=== PATIENT | male | born 1930 | race Caucasian/White ===

== ENCOUNTER → 2018-09-27 | Outpatient (CLI) | payer MEDICARE, OTHER | LOC: M SMT 11:07 | PROVIDERS: ATTEND Urology | DX: Z12.5 Encounter for screening for malignant neoplasm of prostate (principal); C61 Malignant neoplasm of prostate; Z87.440 Personal history of urinary (tract) infections | CPT/HCPCS: 36415; G0103 ==

== ENCOUNTER → 2018-10-05 | Outpatient (CLI) | payer MEDICARE, OTHER ==
--- NOTE | 2018-10-05 09:49 | REP ---
RIGHT SHOULDER, THREE VIEWS: HISTORY: Shoulder pain. There is no acute fracture or dislocation. There is minimal narrowing of the glenohumeral joint space and mild narrowing of the acromioclavicular joint space. Calcification is present lateral to the head of the humerus. This represents ligamentous or tendon calcification. IMPRESSION: Degenerative change as described above. Electronically Signed by Paul Juares MD 10/05/2018 10:02 A
[2018-10-05 13:56] LABS: BASO # 0.1 10^3/uL (0.0-0.2); BASO % 0.6 % (0.0-1.0); EOS # 0.4 10^3/uL (0.0-0.50); EOS % 4.3 % (0.0-3.0); HEMATOCRIT 46.9 % (42.0-52.0); HEMOGLOBIN 15.9 g/dl (13.5-17.5); LYMPH # 2.7 10^3/uL (1.5-4.5); LYMPH % 29.3 % (24.0-44.0); MEAN CORPUSCULAR HGB CONC 33.9 g/dl (32.0-36.5); MEAN CORPUSCULAR VOLUME 91.4 fl (80.0-96.0); MONO # 0.7 10^3/uL (0.0-0.8); MONO % 7.5 % (0.0-5.0); NEUTROPHILS # 5.2 10^3/uL (1.8-7.7); NEUTROPHILS % 57.4 % (36.0-66.0); PLATELET COUNT, AUTOMATED 249 10^3/uL (150-450); RED BLOOD COUNT 5.13 10^6/uL (4.30-6.10); WHITE BLOOD COUNT 9.1 10^3/uL (4.0-10.0)
[2018-10-05 14:29] LABS: ALBUMIN 3.9 GM/DL (3.2-5.2); ALT/SGPT 20 U/L (12-78); BILIRUBIN,TOTAL 0.7 MG/DL (0.2-1.0); BLOOD UREA NITROGEN 17 MG/DL (7-18); CALCIUM LEVEL 9.3 MG/DL (8.8-10.2); CARBON DIOXIDE LEVEL 29 MEQ/L (21-32); CHLORIDE LEVEL 103 MEQ/L (98-107); CHOLESTEROL LEVEL 160 MG/DL (<200); GLOMERULAR FILTRATION RATE > 60.0 (>35); GLUCOSE, FASTING 100 MG/DL (70-100); HDL CHOLESTEROL 50 MG/DL (>40); LDL CHOLESTEROL 75 MG/DL (<100); NON-HDL-C 110 MG/DL; POTASSIUM SERUM 4.5 MEQ/L (3.5-5.1); SODIUM LEVEL 140 MEQ/L (136-145); TOTAL PROTEIN 6.7 GM/DL (6.4-8.2); TRIGLYCERIDES LEVEL 173 MG/DL (<150)
== END ==
LOC: M SMT 09:18
PROVIDERS: ATTEND Physician Assistant Medical
DX: M75.01 Adhesive capsulitis of right shoulder (principal); I10 Essential (primary) hypertension; E78.5 Hyperlipidemia, unspecified

== ENCOUNTER → 2018-10-18 | Outpatient (CLI) | payer MEDICARE, OTHER | LOC: M SMT 14:24 | PROVIDERS: ATTEND Physician Assistant | DX: R53.83 Other fatigue (principal) ==

== ENCOUNTER 2018-12-13 05:32 | Emergency (ER) | payer MEDICARE, OTHER ==
[~2018-12-13] VITALS: Ht 175.3 cm; Wt 90.9 kg
[2018-12-13 05:37] VITALS: BP 188/86
[2018-12-13] MEDS ORDERED: SIMV10TA2 PO (05:40)
[2018-12-13] MEDS ORDERED: LISI-538 PO (05:40)
[2018-12-13] MEDS ORDERED: DILT1CAP6 PO (05:40)
[2018-12-13] MEDS ORDERED: FLOM0.4C39 PO (05:40)
[2018-12-13] MEDS ORDERED: DILT60TA PO (05:40)
[2018-12-13] MEDS ORDERED: FINA5TAB2 PO (05:40)
[2018-12-13] MEDS ORDERED: TETANUS/DIPHTHERIA TOX ADSORB ADULT 0.5ML SYR/VIAL (90714) IM ONE (06:00)
[2018-12-13] MEDS ORDERED: BUPIVACAINE LIPOSOME/PF 1.3% 20ML VIAL (13.3MG/ML)(EXPAREL)(C9290 PER1MG) INFIL ONE (06:30)
--- NOTE | 2018-12-13 06:43 | REPVR ---
EXAM: CT Head Without Contrast EXAM DATE/TIME: 12/13/2018 6:06 AM CLINICAL HISTORY: 88 years old, male; Injury or trauma; Fall; Additional info: Tr TECHNIQUE: Imaging protocol: Axial computed tomography images of the head/brain without contrast. Radiation optimization: All CT scans at this facility use at least one of these dose optimization techniques: automated exposure control; mA and/or kV adjustment per patient size (includes targeted exams where dose is matched to clinical indication); or iterative reconstruction. COMPARISON: No relevant prior studies available. FINDINGS: Brain: There is minimal patchy low attenuation of deep white matter. There is slight prominence of the peripheral sulci. Ventricles: There is mild prominence of the central ventricular system. Bones/joints: Unremarkable. No acute fracture. Sinuses: Ethmoid and inferior frontal sinus mucosal thickening. Mastoid air cells: Visualized mastoid air cells are unremarkable. No mastoid effusion. Soft tissues: Unremarkable. IMPRESSION: 1. Minimal chronic ischemic white matter change and mild atrophy. 2. Mild ethmoid and minimal inferior frontal sinus disease. 3. Otherwise negative noncontrast head CT. Electronically signed by: Fredis Stephen On 12/13/2018 06:42:31 AM
--- NOTE | 2018-12-13 08:50 | REP ---
Left rib series: Five views including AP chest. History: Trauma. Findings: PA chest radiograph shows blunting of the left lateral pleural angle. There are clips in right upper quadrant of the abdomen. There is no evidence of pneumothorax. Mediastinum is not widened. Heart size is normal. There are degenerative changes in the thoracic aorta. Multiple views of the left rib cage demonstrate acute nondisplaced fractures of the lateral segments of the left eighth and ninth ribs. No other fracture is seen. Impression: Acute nondisplaced left lateral 8th and 9th rib fractures. Blunting of the left lateral pleural angle. Electronically Signed by Daljit Pulido MD 12/13/2018 09:02 A
== END 2018-12-13 07:20 | disposition home or self-care (01) ==
LOC: M ED 05:32
DX: S22.42XA Multiple fractures of ribs, left side, initial encounter for closed fracture (principal); S00.81XA Abrasion of other part of head, initial encounter; W01.198A Fall on same level from slipping, tripping and stumbling with subsequent striking against other object, initial encounter; Y92.098 Other place in other non-institutional residence as the place of occurrence of the external cause; I67.82 Cerebral ischemia; J32.2 Chronic ethmoidal sinusitis; J32.1 Chronic frontal sinusitis; R07.81 Pleurodynia; I10 Essential (primary) hypertension; N40.0 Benign prostatic hyperplasia without lower urinary tract symptoms; Z87.891 Personal history of nicotine dependence; Z88.2 Allergy status to sulfonamides; Z79.899 Other long term (current) drug therapy
CPT/HCPCS: 64420; 70450; 71101; 90471; 90714; 99284; C9290

== ENCOUNTER → 2019-03-02 | Outpatient (CLI) | payer MEDICARE, OTHER ==
[~2019-03-02] MED LIST: DILT1CAP6 PO; DILT60TA PO; FINA5TAB2 PO; FLOM0.4C39 PO; LISI-538 PO; SIMV10TA2 PO
[2019-03-02 19:58] LABS: BASO % 0.3 % (0.0-1.0); EOS # 0.6 10^3/uL (0.0-0.50); EOS % 4.6 % (0.0-3.0); HEMATOCRIT 42.8 % (42.0-52.0); HEMOGLOBIN 14.6 g/dl (13.5-17.5); LYMPH % 24.6 % (24.0-44.0); MEAN CORPUSCULAR HEMOGLOBIN 30.9 pg (27.0-33.0); MEAN CORPUSCULAR HGB CONC 34.1 g/dl (32.0-36.5); MEAN CORPUSCULAR VOLUME 90.5 fl (80.0-96.0); MONO % 8.3 % (0.0-5.0); NEUTROPHILS # 7.4 10^3/uL (1.8-7.7); NEUTROPHILS % 61.6 % (36.0-66.0); PLATELET COUNT, AUTOMATED 252 10^3/uL (150-450); RED BLOOD COUNT 4.73 10^6/uL (4.30-6.10); WHITE BLOOD COUNT 12.1 10^3/uL (4.0-10.0)
== END ==
LOC: M WUC 17:16
PROVIDERS: ATTEND Physician Assistant Medical
DX: K62.5 Hemorrhage of anus and rectum (principal)

== ENCOUNTER 2019-03-03 20:15 | Emergency (ER) | payer MEDICARE, OTHER ==
[~2019-03-03] VITALS: Ht 175.3 cm; Wt 90.9 kg
[2019-03-03 21:00] VITALS: BP 166/81
[2019-03-03] MEDS ORDERED: NS 500 ML IV ONE (21:00)
[2019-03-03 21:29] LABS: BASO % 0.4 % (0.0-1.0); EOS # 0.4 10^3/uL (0.0-0.50); EOS % 3.6 % (0.0-3.0); HEMATOCRIT 41.7 % (42.0-52.0); HEMOGLOBIN 14.5 g/dl (13.5-17.5); LYMPH # 1.9 10^3/uL (1.5-4.5); LYMPH % 19.3 % (24.0-44.0); MEAN CORPUSCULAR HEMOGLOBIN 31.9 pg (27.0-33.0); MEAN CORPUSCULAR HGB CONC 34.8 g/dl (32.0-36.5); MEAN CORPUSCULAR VOLUME 91.6 fl (80.0-96.0); MONO # 0.8 10^3/uL (0.0-0.8); MONO % 7.9 % (0.0-5.0); NEUTROPHILS # 6.8 10^3/uL (1.8-7.7); NEUTROPHILS % 68.3 % (36.0-66.0); PLATELET COUNT, AUTOMATED 229 10^3/uL (150-450); RED BLOOD COUNT 4.55 10^6/uL (4.30-6.10)
== END 2019-03-03 21:54 | disposition home or self-care (01) ==
LOC: M ED 20:15
DX: K62.5 Hemorrhage of anus and rectum (principal); I10 Essential (primary) hypertension; N40.0 Benign prostatic hyperplasia without lower urinary tract symptoms; E78.5 Hyperlipidemia, unspecified; K64.8 Other hemorrhoids; Z87.19 Personal history of other diseases of the digestive system; Z79.899 Other long term (current) drug therapy; Z88.1 Allergy status to other antibiotic agents; Z88.2 Allergy status to sulfonamides

== ENCOUNTER 2019-04-13 10:40 | Emergency (ER) | payer MEDICARE, OTHER ==
[~2019-04-13] VITALS: Ht 177.8 cm; Wt 90.9 kg
[2019-04-13 11:42] LABS: HEMATOCRIT 43.9 % (42.0-52.0); HEMOGLOBIN 14.7 g/dl (13.5-17.5); MEAN CORPUSCULAR HEMOGLOBIN 30.9 pg (27.0-33.0); MEAN CORPUSCULAR HGB CONC 33.5 g/dl (32.0-36.5); MEAN CORPUSCULAR VOLUME 92.4 fl (80.0-96.0); PLATELET COUNT, AUTOMATED 224 10^3/uL (150-450); RED BLOOD COUNT 4.75 10^6/uL (4.30-6.10)
--- NOTE | 2019-04-13 12:03 | REP ---
PA and lateral chest: Comparison is the left rib series dated 12/13/2018. The lung carlson are clear. Cardiac size is normal. The jorge, mediastinum, skeletal structures are unremarkable. 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 Electronically Signed by Bassam Jarrett MD 04/13/2019 11:55 A
[2019-04-13 13:19] VITALS: BP 166/74
== END 2019-04-13 13:40 | disposition home or self-care (01) ==
LOC: M ED 10:40
DX: K64.9 Unspecified hemorrhoids (principal); I10 Essential (primary) hypertension; E78.5 Hyperlipidemia, unspecified; K57.32 Diverticulitis of large intestine without perforation or abscess without bleeding; Z85.46 Personal history of malignant neoplasm of prostate; Z87.891 Personal history of nicotine dependence; Z79.899 Other long term (current) drug therapy; Z88.2 Allergy status to sulfonamides

== ENCOUNTER 2019-05-06 17:29 | Emergency (ER) | payer MEDICARE, OTHER ==
[~2019-05-06] VITALS: Ht 177.8 cm; Wt 90.9 kg
[~2019-05-06 17:29] MED LIST changes: -SIMV10TA2 PO; +SIMV10TA21 PO
[2019-05-06] MEDS ORDERED: PRED20TA PO (17:36)
[2019-05-06] MEDS ORDERED: TRIA1CR80 TOP (21:38)
[2019-05-06] MEDS ORDERED: BENA25CA4 PO (21:38)
[2019-05-06 21:58] VITALS: BP 178/86
== END 2019-05-06 21:59 | disposition home or self-care (01) ==
LOC: M ED 17:29
DX: L25.5 Unspecified contact dermatitis due to plants, except food (principal); I10 Essential (primary) hypertension; E78.5 Hyperlipidemia, unspecified; K21.9 Gastro-esophageal reflux disease without esophagitis; Z79.899 Other long term (current) drug therapy; Z88.2 Allergy status to sulfonamides

== ENCOUNTER → 2019-05-12 | Outpatient (CLI) | payer MEDICARE, OTHER ==
[~2019-05-12] MED LIST changes: +BENA25CA4 PO; +PRED20TA PO; +SIMV10TA2 PO; -SIMV10TA21 PO; +TRIA1CR80 TOP
== END ==
LOC: M SMT 10:47
PROVIDERS: ATTEND Urology
DX: C61 Malignant neoplasm of prostate (principal)

== ENCOUNTER → 2019-05-27 | Outpatient (CLI) | payer MEDICARE, OTHER ==
[~2019-05-27] MED LIST changes: +ASPI81TA85 PO; +CIDA500T2 PO; +COQ-100C5 PO; +CYAN2500 SL; +KP F1200 PO; +ODOR100T3 PO; +SM G150T PO
[2019-05-27 14:10] LABS: BASO % 0.4 % (0.0-1.0); EOS # 0.3 10^3/uL (0.0-0.5); EOS % 2.9 % (0.0-3.0); HEMATOCRIT 41.7 % (42.0-52.0); LYMPH # 2.1 10^3/uL (1.5-5.0); LYMPH % 21.6 % (24.0-44.0); MEAN CORPUSCULAR HEMOGLOBIN 30.6 pg (27.0-33.0); MEAN CORPUSCULAR HGB CONC 33.6 g/dl (32.0-36.5); MONO # 0.7 10^3/uL (0.0-0.8); MONO % 7.3 % (0.0-5.0); NEUTROPHILS # 6.5 10^3/uL (1.5-8.5); NEUTROPHILS % 67.3 % (36.0-66.0); PLATELET COUNT, AUTOMATED 228 10^3/uL (150-450); RED BLOOD COUNT 4.58 10^6/uL (4.30-6.10); WHITE BLOOD COUNT 9.6 10^3/uL (4.0-10.0)
[2019-05-27 14:19] LABS: ALBUMIN 3.5 GM/DL (3.2-5.2); ALT/SGPT 20 U/L (12-78); BILIRUBIN,TOTAL 0.6 MG/DL (0.2-1.0); BLOOD UREA NITROGEN 24 MG/DL (7-18); CALCIUM LEVEL 9.4 MG/DL (8.8-10.2); CARBON DIOXIDE LEVEL 28 MEQ/L (21-32); CHLORIDE LEVEL 107 MEQ/L (98-107); CREATININE FOR GFR 1.11 MG/DL (0.70-1.30); GLOMERULAR FILTRATION RATE > 60.0 (>35); GLUCOSE, FASTING 154 MG/DL (70-100); POTASSIUM SERUM 4.1 MEQ/L (3.5-5.1); SODIUM LEVEL 141 MEQ/L (136-145); TOTAL PROTEIN 6.2 GM/DL (6.4-8.2)
== END ==
LOC: M SMT 10:44
PROVIDERS: ATTEND Physician Assistant
DX: K62.5 Hemorrhage of anus and rectum (principal)

== ENCOUNTER 2019-06-05 06:24 | Emergency (ER) | payer MEDICARE, OTHER ==
[~2019-06-05] VITALS: Ht 177.8 cm; Wt 90.9 kg
[~2019-06-05 06:24] MED LIST changes: -ASPI81TA85 PO; -CIDA500T2 PO; -COQ-100C5 PO; -CYAN2500 SL; -KP F1200 PO; -ODOR100T3 PO; -SM G150T PO
[2019-06-05] MEDS ORDERED: ASPIRIN 81 MG CHEW TABLET PO ONE (07:00)
[2019-06-05] MEDS ORDERED: NITROGLYCERIN 0.4 MG SUBL TABLET SL PRN (07:00)
[2019-06-05 07:01] LABS: BASO # 0.1 10^3/uL (0.0-0.2); BASO % 0.6 % (0.0-1.0); EOS # 0.4 10^3/uL (0.0-0.5); EOS % 4.3 % (0.0-3.0); HEMATOCRIT 43.9 % (42.0-52.0); LYMPH # 2.9 10^3/uL (1.5-5.0); MEAN CORPUSCULAR HEMOGLOBIN 31.3 pg (27.0-33.0); MEAN CORPUSCULAR HGB CONC 34.2 g/dl (32.0-36.5); MEAN CORPUSCULAR VOLUME 91.6 fl (80.0-96.0); MONO # 0.7 10^3/uL (0.0-0.8); MONO % 8.5 % (0.0-5.0); NEUTROPHILS # 4.5 10^3/uL (1.5-8.5); NEUTROPHILS % 52.1 % (36.0-66.0); PLATELET COUNT, AUTOMATED 240 10^3/uL (150-450); RED BLOOD COUNT 4.79 10^6/uL (4.30-6.10); WHITE BLOOD COUNT 8.5 10^3/uL (4.0-10.0)
[2019-06-05 07:28] LABS: BLOOD UREA NITROGEN 21 MG/DL (7-18); CARBON DIOXIDE LEVEL 25 MEQ/L (21-32); CHLORIDE LEVEL 108 MEQ/L (98-107); CK-MB VALUE MASS 1.9 NG/ML (<3.6); CPK CREATINE PHOSPHOKINASE 106 U/L (39-308); CREATININE FOR GFR 1.01 MG/DL (0.70-1.30); GLOMERULAR FILTRATION RATE > 60.0 (>35); GLUCOSE, FASTING 114 MG/DL (70-100); MB/CK RELATIVE INDEX 1.79 (< OR =4); NT-PRO BNP 72 PG/ML (<450); POTASSIUM SERUM 4.3 MEQ/L (3.5-5.1); SODIUM LEVEL 141 MEQ/L (136-145); TROPONIN I < 0.02 NG/ML (< 0.10)
[2019-06-05] MEDS ORDERED: NS 1,000 ML IV SCH (08:15)
--- NOTE | 2019-06-05 09:03 | ECGEPIP ---
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
--- NOTE | 2019-06-05 09:25 | REP ---
REASON: Dyspnea. COMPARISON: 04/13/2019 The technique utilized in obtaining the radiograph has magnified the cardiac silhouette and accentuated the interstitial markings. There is bibasilar fibrotic change status quo. No acute patchy parenchymal opacities or pleural effusions have developed. The cardial silhouette is magnified by technique. Mild cardiomegaly can not be ruled out. There is no change in the osseous structures. IMPRESSION: No evidence of acute cardiopulmonary disease. Chronic changes suspected as described above. Electronically Signed by Flako William DO 06/05/2019 09:27 A
[2019-06-05] MEDS ORDERED: CYAN2500 SL (11:33)
[2019-06-05] MEDS ORDERED: COQ-100C5 PO (11:33)
[2019-06-05] MEDS ORDERED: ASPI81TA85 PO (11:33)
[2019-06-05] MEDS ORDERED: KP F1200 PO (11:33)
[2019-06-05] MEDS ORDERED: SM G150T PO (11:33)
[2019-06-05] MEDS ORDERED: ODOR100T3 PO (11:33)
[2019-06-05] MEDS ORDERED: CIDA500T2 PO (11:33)
[2019-06-05] MEDS ORDERED: LISINOPRIL 20 MG TAB PO ONE (12:30)
[2019-06-05 13:03] VITALS: BP 178/81
--- NOTE | 2019-06-05 13:27 | ECGEPIP ---
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
[2019-06-05 14:12] LABS: CK-MB VALUE MASS 1.7 NG/ML (<3.6); CPK CREATINE PHOSPHOKINASE 85 U/L (39-308); TROPONIN I < 0.02 NG/ML (< 0.10)
[2019-06-05 14:45] VITALS: BP 174/79
== END 2019-06-05 15:10 | disposition home or self-care (01) ==
LOC: M ED 06:24
DX: I44.7 Left bundle-branch block, unspecified (principal); I10 Essential (primary) hypertension; Z87.891 Personal history of nicotine dependence; Z88.2 Allergy status to sulfonamides; Z79.82 Long term (current) use of aspirin; Z79.899 Other long term (current) drug therapy

== ENCOUNTER → 2019-06-28 | Outpatient (CLI) | payer MEDICARE, OTHER ==
[~2019-06-28] MED LIST changes: +ASPI81TA85 PO; +CIDA500T2 PO; +COQ-100C5 PO; +CYAN2500 SL; +KP F1200 PO; +ODOR100T3 PO; +SM G150T PO
--- NOTE | 2019-07-01 00:26 | SLEEPCENT ---
DATE OF PROCEDURE: 06/28/2019 ORDERED BY: BETH Gonzalez Nocturnal polysomnography was performed for the titration of pressure therapy in this patient with a history of obstructive sleep apnea syndrome incompletely palliated with continuous positive airway pressure (CPAP). For testing a Solx Simplus full-face mask was used, 8 cm of water pressure were initially applied to the circuit and the lights were extinguished. 8 hours and 38 minutes of data were reviewed. There were 257.5 minutes of sleep identified. Sleep latency was prolonged at 25 minutes. Rapid eye movement (REM) latency was prolonged at 283 minutes. Sleep architecture was poor early in the study but improved significantly later in the test. There were four REM cycles. Overall sleep efficiency 50.1%. The electrocardiogram showed a sinus rhythm with an average heart rate of 60 beats per minute. EEG showed normal waveforms for awake and sleep stages. Respiratory events persisted prompting an increase in CPAP. The patient had a prolonged period of wake, complicating titration. Hypopneic events were seen despite CPAP at a pressure of 10-12 at CPAP 13. The patient did sleep through REM without respiratory event or oxygen desaturation. IMPRESSION: Obstructive sleep apnea syndrome (G47.33). RECOMMENDATIONS: Nightly use of pressure therapy 13 cm of water.
== END ==
LOC: M SLEEP 19:19
PROVIDERS: ATTEND Nurse Practitioner Family
DX: G47.33 Obstructive sleep apnea (adult) (pediatric) (principal)

== ENCOUNTER 2019-08-12 18:34 | Emergency (ER) | payer MEDICARE, OTHER ==
[~2019-08-12 18:34] MED LIST changes: -SIMV10TA2 PO; +SIMV10TA21 PO
--- NOTE | 2019-08-12 19:23 | REP ---
REASON: Chest pain. COMPARISON: 06/05/2019 The technique utilized in obtaining the radiograph has magnified the cardiac silhouette and accentuated the interstitial markings. There is no change from 06/05/2019 There is no acute disease. Electronically Signed by Flako William DO 08/13/2019 09:20 A
[2019-08-12 19:41] LABS: BASO % 0.4 % (0.0-1.0); EOS # 0.1 10^3/uL (0.0-0.5); EOS % 0.9 % (0.0-3.0); HEMATOCRIT 39.1 % (42.0-52.0); HEMOGLOBIN 13.2 g/dl (13.5-17.5); LYMPH # 1.3 10^3/uL (1.5-5.0); LYMPH % 15.9 % (24.0-44.0); MEAN CORPUSCULAR HEMOGLOBIN 30.8 pg (27.0-33.0); MEAN CORPUSCULAR HGB CONC 33.8 g/dl (32.0-36.5); MEAN CORPUSCULAR VOLUME 91.1 fl (80.0-96.0); MONO # 1.1 10^3/uL (0.0-0.8); NEUTROPHILS # 5.4 10^3/uL (1.5-8.5); NEUTROPHILS % 68.4 % (36.0-66.0); PLATELET COUNT, AUTOMATED 166 10^3/uL (150-450); RED BLOOD COUNT 4.29 10^6/uL (4.30-6.10); WHITE BLOOD COUNT 7.9 10^3/uL (4.0-10.0)
[2019-08-12 19:58] LABS: BLOOD UREA NITROGEN 16 MG/DL (7-18); CARBON DIOXIDE LEVEL 27 MEQ/L (21-32); CHLORIDE LEVEL 108 MEQ/L (98-107); CK-MB VALUE MASS 1.2 NG/ML (<3.6); CPK CREATINE PHOSPHOKINASE 62 U/L (39-308); CREATININE FOR GFR 0.86 MG/DL (0.70-1.30); GLOMERULAR FILTRATION RATE > 60.0 (>35); GLUCOSE, FASTING 119 MG/DL (70-100); MB/CK RELATIVE INDEX 1.94 (< OR =4); SODIUM LEVEL 141 MEQ/L (136-145); TROPONIN I 0.02 NG/ML (< 0.10)
[2019-08-12 22:54] LABS: CK-MB VALUE MASS < 1.0 NG/ML (<3.6); CPK CREATINE PHOSPHOKINASE 54 U/L (39-308); MB/CK RELATIVE INDEX 1.85 (< OR =4); TROPONIN I 0.02 NG/ML (< 0.10)
[2019-08-12 23:16] VITALS: BP 139/65
--- NOTE | 2019-08-13 12:57 | ECGEPIP ---
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
--- NOTE | 2019-08-13 13:05 | ECGEPIP ---
[facility] - ED Test Date: 2019-08-12 Pat Name: MAIKEL MURCIA Department: Room: - Gender: Male Rn Clinical Resource: MS : 1930 Requested By: KEMAR LYNN Order Number: [id number] Reading MD: Zachary Vasquez Measurements Intervals [place] Rate: 79 P: 64 WA: 168 QRS: 10 QRSD: 130 T: 108 QT: 386 QTc: 445 Interpretive Statements SINUS RHYTHM LEFT BUNDLE BRANCH BLOCK Left axis deviation NONSPECIFIC ST T WAVE CHANGES CW 08/12/[address] T WAVE CHANGES Electronically Signed on 08-13-2019 13:04:39 EST by Zachary Vasquez
== END 2019-08-12 23:47 | disposition home or self-care (01) ==
LOC: M ED 18:34
DX: R07.89 Other chest pain (principal); I44.7 Left bundle-branch block, unspecified; I44.4 Left anterior fascicular block; I10 Essential (primary) hypertension; E78.5 Hyperlipidemia, unspecified; Z85.46 Personal history of malignant neoplasm of prostate; Z88.2 Allergy status to sulfonamides; Z79.02 Long term (current) use of antithrombotics/antiplatelets; Z79.82 Long term (current) use of aspirin; Z79.899 Other long term (current) drug therapy

== ENCOUNTER 2019-08-25 15:36 | Emergency (ER) | payer MEDICARE, OTHER ==
[~2019-08-25] VITALS: Ht 177.8 cm; Wt 96.2 kg
[2019-08-25] MEDS ORDERED: DOXY100C37 (15:44)
[2019-08-25] MEDS ORDERED: IPRATROPIUM 0.5MG/ALBUTEROL 2.5MG INH SOL UD 3ML (DUONEB)(J7620) NEB ONE (17:30)
--- NOTE | 2019-08-25 18:21 | ECGEPIP ---
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
[2019-08-25 18:40] LABS: BASO # 0.1 10^3/uL (0.0-0.2); BASO % 0.6 % (0.0-1.0); EOS # 0.3 10^3/uL (0.0-0.5); EOS % 3.7 % (0.0-3.0); HEMATOCRIT 43.1 % (42.0-52.0); HEMOGLOBIN 14.1 g/dl (13.5-17.5); LYMPH # 2.2 10^3/uL (1.5-5.0); LYMPH % 26.9 % (24.0-44.0); MEAN CORPUSCULAR HGB CONC 32.7 g/dl (32.0-36.5); MEAN CORPUSCULAR VOLUME 91.7 fl (80.0-96.0); MONO # 0.9 10^3/uL (0.0-0.8); MONO % 10.7 % (0.0-5.0); NEUTROPHILS # 4.7 10^3/uL (1.5-8.5); NEUTROPHILS % 57.3 % (36.0-66.0); PLATELET COUNT, AUTOMATED 261 10^3/uL (150-450); WHITE BLOOD COUNT 8.3 10^3/uL (4.0-10.0)
--- NOTE | 2019-08-25 19:00 | REP ---
CHEST, TWO VIEWS: Two views of the chest are performed and compared to multiple prior exams. Most recently 08/12/2019. There is again mild elevation of the right hemidiaphragm. There is mild bibasilar fibrotic change without acute infiltrate. There is mild left ventricular prominence unchanged. There is calcification of the thoracic aorta. Mediastinal silhouette is unchanged. There are mild degenerative changes of the spine. Metallic clips are seen in the right upper quadrant of the abdomen. IMPRESSION: Stable exam with no acute pulmonary disease. Electronically Signed by Bassam Ellison MD 08/25/2019 07:08 P
[2019-08-25 19:05] LABS: ALBUMIN 3.2 GM/DL (3.2-5.2); ALT/SGPT 27 U/L (12-78); BILIRUBIN,DIRECT 0.1 MG/DL (0.0-0.2); BILIRUBIN,TOTAL 0.4 MG/DL (0.2-1.0); BLOOD UREA NITROGEN 18 MG/DL (7-18); CALCIUM LEVEL 8.8 MG/DL (8.8-10.2); CARBON DIOXIDE LEVEL 27 MEQ/L (21-32); CHLORIDE LEVEL 105 MEQ/L (98-107); CK-MB VALUE MASS 1.5 NG/ML (<3.6); CPK CREATINE PHOSPHOKINASE 58 U/L (39-308); CREATININE FOR GFR 0.97 MG/DL (0.70-1.30); GLOMERULAR FILTRATION RATE > 60.0 (>35); GLUCOSE, FASTING 150 MG/DL (70-100); MB/CK RELATIVE INDEX 2.59 (< OR =4); NT-PRO BNP 269 PG/ML (<450); POTASSIUM SERUM 4.2 MEQ/L (3.5-5.1); SODIUM LEVEL 140 MEQ/L (136-145); TOTAL PROTEIN 6.2 GM/DL (6.4-8.2); TROPONIN I < 0.02 NG/ML (< 0.10)
[2019-08-25] MEDS ORDERED: PROAAER10 INH (19:49)
[2019-08-25] MEDS ORDERED: TESS100C PO (19:49)
[2019-08-25] MEDS ORDERED: ALBUTEROL 90 MCG/ACT 8GM HFA INHALER INH ONE (20:00)
[2019-08-25 20:03] VITALS: BP 181/89
== END 2019-08-25 20:18 | disposition home or self-care (01) ==
LOC: M ED 15:36
DX: J40 Bronchitis, not specified as acute or chronic (principal); I10 Essential (primary) hypertension; E78.5 Hyperlipidemia, unspecified; K21.9 Gastro-esophageal reflux disease without esophagitis; F03.90 Unspecified dementia, unspecified severity, without behavioral disturbance, psychotic disturbance, mood disturbance, and anxiety; B15.9 Hepatitis A without hepatic coma; Z79.899 Other long term (current) drug therapy; Z88.2 Allergy status to sulfonamides

== ENCOUNTER → 2019-10-05 | Outpatient (CLI) | payer MEDICARE, OTHER ==
[~2019-10-05] MED LIST changes: +DOXY100C37; +PROAAER10 INH; +TESS100C PO
[2019-10-05 14:02] LABS: BASO % 0.3 % (0.0-1.0); EOS # 0.4 10^3/uL (0.0-0.5); HEMATOCRIT 47.1 % (42.0-52.0); HEMOGLOBIN 15.1 g/dl (13.5-17.5); LYMPH # 2.3 10^3/uL (1.5-5.0); LYMPH % 23.7 % (24.0-44.0); MEAN CORPUSCULAR HGB CONC 32.1 g/dl (32.0-36.5); MEAN CORPUSCULAR VOLUME 93.5 fl (80.0-96.0); MONO # 0.9 10^3/uL (0.0-0.8); MONO % 9.2 % (0.0-5.0); NEUTROPHILS % 62.4 % (36.0-66.0); PLATELET COUNT, AUTOMATED 226 10^3/uL (150-450); RED BLOOD COUNT 5.04 10^6/uL (4.30-6.10); WHITE BLOOD COUNT 9.6 10^3/uL (4.0-10.0)
[2019-10-05 14:06] LABS: ALBUMIN 3.6 GM/DL (3.2-5.2); ALT/SGPT 22 U/L (12-78); BILIRUBIN,TOTAL 0.9 MG/DL (0.2-1.0); BLOOD UREA NITROGEN 16 MG/DL (7-18); CALCIUM LEVEL 9.2 MG/DL (8.8-10.2); CARBON DIOXIDE LEVEL 27 MEQ/L (21-32); CHLORIDE LEVEL 107 MEQ/L (98-107); CHOLESTEROL LEVEL 168 MG/DL (<200); CHOLESTEROL RISK RATIO 3.054 (<5); CREATININE FOR GFR 0.92 MG/DL (0.70-1.30); GLOMERULAR FILTRATION RATE > 60.0 (>35); GLUCOSE, FASTING 114 MG/DL (70-100); HDL CHOLESTEROL 55 MG/DL (>40); LDL CHOLESTEROL 87 MG/DL (<100); NON-HDL-C 113 MG/DL; POTASSIUM SERUM 4.4 MEQ/L (3.5-5.1); SODIUM LEVEL 141 MEQ/L (136-145); TOTAL PROTEIN 6.8 GM/DL (6.4-8.2); TRIGLYCERIDES LEVEL 129 MG/DL (<150)
[2019-10-05 14:13] LABS: TOTAL 25(OH) VITAMIN D 30.6 NG/ML (30.0-100.0)
== END ==
LOC: M PLALAB 10:19
PROVIDERS: ATTEND Physician Assistant
DX: D64.9 Anemia, unspecified (principal); E55.9 Vitamin D deficiency, unspecified; E78.5 Hyperlipidemia, unspecified; I10 Essential (primary) hypertension

== ENCOUNTER → 2019-11-14 | Outpatient (CLI) | payer MEDICARE, OTHER ==
[2019-11-14 11:08] LABS: BLOOD UREA NITROGEN 23 MG/DL (7-18); GLOMERULAR FILTRATION RATE > 60.0 (>35)
== END ==
LOC: M LAB 10:03
PROVIDERS: ATTEND Urology
DX: C61 Malignant neoplasm of prostate (principal)

== ENCOUNTER → 2019-11-24 | Outpatient (CLI) | payer MEDICARE, OTHER ==
[~2019-11-24] MED LIST changes: +ISOVUE-370 76% 100ML VIAL (Q9967) As Ordered ONE
--- NOTE | 2019-11-24 11:22 | REPVR ---
PROCEDURE INFORMATION: Exam: CT Pelvis With Contrast Exam date and time: 11/24/2019 10:25 AM Age: 89 years old Clinical indication: Prostate cancer. TECHNIQUE: Imaging protocol: Computed tomography images of the pelvis with intravenous contrast. Radiation optimization: All CT scans at this facility use at least one of these dose optimization techniques: automated exposure control; mA and/or kV adjustment per patient size (includes targeted exams where dose is matched to clinical indication); or iterative reconstruction. Contrast material: ISOVUE 370; Contrast volume: 100 ml; Contrast route: IV; COMPARISON: CT abdomen pelvis 04/13/08 from [facility]. At the time of dictation, the report of the prior study is available, but the images are not. FINDINGS: Kidneys and ureters: The visualized portion of the lower left kidney is unremarkable Stomach and bowel: Numerous sigmoid colonic diverticula without evidence of diverticulitis. The colon is otherwise unremarkable. No acute colonic distention or inflammation. Appendix: The appendix is normal in caliber without surrounding inflammation. Intraperitoneal space: Unremarkable. No free air. No significant fluid collection. Vasculature: There is moderate calcific atherosclerosis of the abdominal aorta and iliac arteries. There is no aneurysm. Lymph nodes: There is no mesenteric, retroperitoneal, pelvic or inguinal lymphadenopathy. Bladder: Normal. No mass. Reproductive: Markedly enlarged prostate, 7.0 x 6.6 x 6.5 cm (159 mL). Hyperdensity at the right inferior aspect of the peripheral zone of the prostate may be blood products from a prior prostate biopsy. Its density is 108 HU. Bones/joints: Severe disc degeneration narrowing at L3-L4, L4-L5 and L5-S1. There are no suspicious sclerotic bone lesions. Soft tissues: Unremarkable. IMPRESSION: 1. No acute abnormality in the pelvis. 2. Markedly enlarged prostate, 7.0 x 6.6 x 6.5 cm (159 mL). 3. Numerous sigmoid colonic diverticula without evidence of diverticulitis. 4. There is no lymphadenopathy. Electronically signed by: Mckinley Baer On 11/24/2019 11:22:15 AM
--- NOTE | 2019-11-24 14:58 | REP ---
Whole body radionuclide bone scan: History: Malignant neoplasm of the prostate. Comparison study: April 13, 2008. Technique: 21.8 mCi technetium 99m MDP is injected and standard whole body bone scan imaging was acquired. Scintigraphic findings: There is a normal distribution of skeletal tracer with uptake in bilateral kidneys and in the urinary bladder. There are two linearly aligned foci of slightly increased uptake in the left anterior rib cage consistent with recent fractures, these involve rib numbers eight and nine. There is some mild degenerative uptake in the acromioclavicular joints bilaterally right more so than left. This is similar to the prior study. There is no evidence to suggest skeletal metastatic disease. Impression: No evidence of skeletal metastasis. Electronically Signed by Daljit Pulido MD 11/24/2019 08:06 P
== END ==
LOC: M RAD 09:59
PROVIDERS: ATTEND Urology
DX: C61 Malignant neoplasm of prostate (principal)
CPT/HCPCS: 72193; 78306; A9503; Q9967

== ENCOUNTER 2020-01-17 08:01 | Observation (INO) | payer MEDICARE, OTHER ==
[~2020-01-17] VITALS: Ht 177.8 cm; Wt 98.6 kg
[~2020-01-17 08:01] MED LIST changes: -ISOVUE-370 76% 100ML VIAL (Q9967) As Ordered ONE
[2020-01-17] MEDS ORDERED: ACETAMINOPHEN TAB 650MG DOSE (2X325MG) PO ONE (08:15)
[2020-01-17 08:47] LABS: ABG BASE EXCESS -1.4 (-2.0-2.0); ABG HCO3 22.6 MEQ/L (22.0-26.0); ABG O2 SATURATION 94.9 % (95.0-99.0); ABG PARTIAL PRESSURE O2 68.9 mmHg (75.0-100.0); ABG STANDARD HCO3 23.2 MEQ/L (22.0-26.0); ABG TOTAL CO2 23.7 MEQ/L (23.0-31.0); ABG pH (ARTERIAL) 7.415 UNITS (7.350-7.450)
[2020-01-17] MEDS ORDERED: SIMVASTATIN 10 MG TAB PO SCH ×2 (09:00→21:00)
[2020-01-17] MEDS ORDERED: TAMSULOSIN 0.4 MG CAP PO SCH ×2 (09:00→21:00)
[2020-01-17 09:03] LABS: BASO % 0.3 % (0.0-1.0); EOS # 0.3 10^3/uL (0.0-0.5); EOS % 3.7 % (0.0-3.0); HEMATOCRIT 44.3 % (42.0-52.0); HEMOGLOBIN 15.1 g/dl (13.5-17.5); LYMPH # 2.8 10^3/uL (1.5-5.0); LYMPH % 31.4 % (24.0-44.0); MEAN CORPUSCULAR HEMOGLOBIN 30.5 pg (27.0-33.0); MEAN CORPUSCULAR HGB CONC 34.1 g/dl (32.0-36.5); MEAN CORPUSCULAR VOLUME 89.5 fl (80.0-96.0); MONO # 0.7 10^3/uL (0.0-0.8); MONO % 7.9 % (0.0-5.0); NEUTROPHILS % 56.3 % (36.0-66.0); PLATELET COUNT, AUTOMATED 221 10^3/uL (150-450); RED BLOOD COUNT 4.95 10^6/uL (4.30-6.10); WHITE BLOOD COUNT 8.9 10^3/uL (4.0-10.0)
--- NOTE | 2020-01-17 09:24 | REP ---
Portable chest x-ray: Single view. History: Dyspnea and cough. Comparison study August 25, 2019. Findings: The lungs are symmetrically aerated. There is an mild plate-like atelectasis in the left base. No infiltrate is seen. Pleural angles are sharp. Heart size is normal. Pulmonary vasculature is not increased. The thoracic aorta is slightly calcific. Impression: Mild plate-like atelectasis left base. Otherwise no acute disease. Electronically Signed by Daljit Pulido MD 01/17/2020 09:15 A
[2020-01-17 09:30] LABS: INR 1.02; PROTHROMBIN TIME 13.1 SECONDS (11.8-14.0)
[2020-01-17 09:31] LABS: ALBUMIN 3.6 GM/DL (3.2-5.2); ALT/SGPT 24 U/L (12-78); BILIRUBIN,DIRECT 0.1 MG/DL (0.0-0.2); BILIRUBIN,TOTAL 0.4 MG/DL (0.2-1.0); BLOOD UREA NITROGEN 15 MG/DL (7-18); C REACTIVE PROTEIN QUANTITATIV < 0.30 MG/DL (0.00-0.30); CALCIUM LEVEL 8.8 MG/DL (8.8-10.2); CARBON DIOXIDE LEVEL 28 MEQ/L (21-32); CHLORIDE LEVEL 106 MEQ/L (98-107); CPK CREATINE PHOSPHOKINASE 83 U/L (39-308); CREATININE FOR GFR 0.92 MG/DL (0.70-1.30); FERRITIN 90 NG/ML (26-388); GLOMERULAR FILTRATION RATE > 60.0 (>35); GLUCOSE, FASTING 107 MG/DL (70-100); MB/CK RELATIVE INDEX 2.41 (< OR =4); NT-PRO BNP 274 PG/ML (<450); POTASSIUM SERUM 3.6 MEQ/L (3.5-5.1); SODIUM LEVEL 140 MEQ/L (136-145); THYROXINE (T4) 6.3 UG/DL (4.5-12.0); TOTAL PROTEIN 6.7 GM/DL (6.4-8.2); TROPONIN I < 0.02 NG/ML (< 0.10)
[2020-01-17 09:33] LABS: D-DIMER QUANT 507.95 ng/ml (<500)
[2020-01-17] MEDS ORDERED: ISOVUE-370 76% 100ML VIAL As Ordered ONE (10:03)
[2020-01-17] MEDS ORDERED: vitamin b12 (11:06)
[2020-01-17] MEDS ORDERED: vitamin d (11:06)
--- NOTE | 2020-01-17 11:25 | REP ---
REASON FOR EXAM: Dyspnea and hypoxia. CONTRAST: 100 mL Isovue 370. PRIORS: None. There is excellent visualization of the pulmonary vasculature. There are no focal filling defects present that would be considered consistent with pulmonary emboli. There are no pleural or pericardial effusions. There is no mediastinal or hilar adenopathy. The imaged upper abdomen is unchanged when compared to abdominal CT of 04/13/2008 with the exception of a round hyperdense lesion which measures 1.2 cm and is consistent with a hyperdense renal cyst. Bone window technique through the examination shows the osseous structures to be within normal limits for the patient's age of 89 years. Evaluation of the lung carlson shows patchy and asymmetric bibasilar opacities. These could obscure a significant nodule. IMPRESSION: 1. There is no pulmonary embolus. 2. Patchy basilar opacities likely fibrotic and/or subsegmental atelectatic changes, however, early pneumonia cannot be rule out. Electronically Signed by Flako William DO 01/17/2020 12:54 P
[2020-01-17] MEDS ORDERED: cefTRIAXone SOD 2 GM in D5W MINI-BAG PLUS 50 ML IV ONE (11:45)
[2020-01-17] MEDS ORDERED: ACETAMINOPHEN TAB 650MG DOSE (2X325MG) PO PRN (12:45)
--- NOTE | 2020-01-17 12:56 | HPEPDOC ---
[facility] Medical History & Physical Date of Admission Jan 17, 2020 Date of Service: Jan 17, 2020 Attending Physician: ANNE BERGER MD History and Physical PRIMARY CARE PROVIDER: Unknown ATTENDING: Dr. Ericka Berger CHIEF COMPLAINT: shortness of breath HISTORY OF PRESENT ILLNESS: Patient is a 89 year old Male presenting with chief complaint of sudden onset SOB. Patient awoke early this morning with sudden onset SOB. He called EMS and was found to have Tmax 100.4 and came into the ED on non-rebreather. Work up in the ED revealed little except ABG with PaO2 of 68 on RA, elevated D-dimer with negative CTA for PE, but CXR and CTA showing possible atelectasis and early pneumonia. PAST MEDICAL HISTORY: Hypertension Hypercholesterolemia PAST SURGICAL HISTORY: abdominal hernia repairx2 SOCIAL HISTORY: denies alcohol use, denies use of tobacco products, denies any marijuana, heroin, cocaine, or PCP use. 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 No Pets at home. No sick contacts. No recent travel/travel history. FAMILY HISTORY: Father had heart problems but he is not sure what kind. ALLERGIES: Please see below. REVIEW OF SYSTEMS: GENERAL: Denies fevers, chills, recent unexpected weight change, night sweats, hemoptysis HEENT: Denies headache, dizziness, vision changes, hearing loss, sore throat CARDIOVASCULAR: Denies chest pain, palpitations, hx of orthopnea RESPIRATORY: Denies shortness of breath, wheezing, cough GASTROINTESTINAL: denies nausea, vomiting, abdominal pain, constipation, diarrhea, bloody stool GENITOURINARY: Denies dysuria,urinary urgency, hematuria. MUSCULOSKELETAL: Denies muscle/joint pain, weakness, stiffness NEUROLOGICAL: Denies any numbness/tingling, focal weakness, or syncope HOME MEDICATIONS: Please see below. PHYSICAL EXAMINATION: Vitals: (see below) General: No acute distress, laying comfortably in bed. HEENT: Normocephalic, atraumatic. EOMI. No scleral icterus. Moist mucous membranes. No pharyngeal erythema or uvular deviation. Neck: No JVD, lymphadenopathy, or thyromegaly. Cardiac: RRR, Normal S1 and S2, No murmurs, gallops, rubs. Pulm: Clear to auscultation b/l. Symmetric thorax. No wheezing, crackles, rhonchi Abd: Bowel Sounds present. Abdomen is soft, non-tender, non-distended. No guarding, rebound tenderness, or rigidity. No hepatosplenomegaly. No masses or eccymosis. Ext: 1+ pitting edema in bilateral lower extremities. Neuro: No focal neuro deficits. LABORATORY DATA: See below. IMAGIN01/17/2020 CTA chest: 1. There is no pulmonary embolus. 2. Patchy basilar opacities likely fibrotic and/or subsegmental atelectatic changes, however, early pneumonia cannot be rule out. 01/17/2020 CXR: Mild plate-like atelectasis left based. Otherwise no acute disease. MICROBIOLOGY: Please see below. ASSESSMENT/PLAN: #. Shortness of breath -Admit to med/surg for 24 hour observation. -Procalcitonin pending but based on CTA I am not convinced patient has a pneumonia as that likely represents atelectasis which can also cause fevers, will not start abx unless he begins to show further signs of pneumonia. COVID PCR pending. BNP normal. 1+ pitting edema, may need outpatient echocardiogram, but I do not think he needs it while he is inpatient since he is currently breathing fine, on room air, and denies any current SOB. #. Hypertension - Continue home lisinopril, ok to give hydralazine if uncontrolled overnight. #. Hypercholesterolemia - Continue home statin #. BPH - Continue home meds -DVT prophy:AYM trejo Dispo: Pending procal, not requiring oxygen, afebrile, he should be fine for DC tomorrow. Attending attestation: I evaluated and examined the patient in person; I discussed the care with Resid ent in detail and agree with the plan above. Vital Signs Vital Signs Date Time Temp Pulse Resp B/P (MAP) Pulse Ox O2 Delivery O2 Flow Rate FiO2 01/17/20 10:31 72 161/74 (103) 97 01/17/20 10:16 22 Nasal Cannula 2.0 01/17/20 10:10 96.2 Laboratory Data Labs 24H Laboratory Tests 2 01/17/20 08:40: Blood Gas Bicarbonate Standard 23.2, Arterial Blood pH 7.415, Arterial Blood Partial Pressure CO2 36.0, Arterial Blood Partial Pressure O2 68.9L, Arterial Blood Total CO2 23.7, Arterial Blood HCO3 22.6, Arterial Blood Base Excess -1.4, Arterial Blood Oxygen Saturation 94.9L 01/17/20 08:50: Prothrombin Time 13.1, Prothromb Time International Ratio 1.02, D-Dimer, Quantitative 507.95H, Anion Gap 6L, Glomerular Filtration Rate > 60.0, Calcium Level 8.8, Ferritin 90, Total Bilirubin 0.4, Direct Bilirubin 0.1, Aspartate Amino Transf (AST/SGOT) 11, Alanine Aminotransferase (ALT/SGPT) 24, Alkaline Phosphatase 80, Total Creatine Kinase 83, Creatine Kinase MB 2.0, Creatine Kinase MB Relative Index 2.41, Troponin I < 0.02, C-Reactive Protein, Quantitative < 0.30, GT-Qkf-O-Type Natriuretic Peptide 274, Total Protein 6.7, Albumin 3.6, Albumin/Globulin Ratio 1.16, Thyroid Stimulating Hormone (TSH) 3.620, Thyroxine (T4) 6.3 01/17/20 08:51: Immature Granulocyte % (Auto) 0.4, Neutrophils (%) (Auto) 56.3, Lymphocytes (%) (Auto) 31.4, Monocytes (%) (Auto) 7.9H, Eosinophils (%) (Auto) 3.7H, Basophils (%) (Auto) 0.3, Neutrophils # (Auto) 5.0, Lymphocytes # (Auto) 2.8, Monocytes # (Auto) 0.7, Eosinophils # (Auto) 0.3, Basophils # (Auto) 0.0, Nucleated Red Blood Cells % (auto) 0.0, Lactic Acid Level 1.7 CBC/BMP Laboratory Tests 01/17/20 08:50 01/17/20 08:51 Microbiology Microbiology 01/17/20 Blood Culture, Received Pending 01/17/20 Coronavirus COVID-19 PCR (SHERRILL), Received Pending 01/17/20 - Final, Complete 01/17/20 Blood Culture, Received Pending Home Medications Scheduled Atorvastatin Calcium (Atorvastatin Calcium) 20 Mg Tablet, 20 MG PO DAILY Finasteride (Finasteride) 5 Mg Tab, 5 MG PO DAILY Lisinopril (Lisinopril) 20 Mg Tab, 20 MG PO DAILY Tamsulosin HCl (Flomax) 0.4 Mg Cap, 0.8 MG PO QHS Allergies Coded Allergies: Sulfa (Sulfonamide Antibiotics) (Verified Allergy, Unknown, UNKNOWN REACTION, 4/28/20) A-FIB/CHADSVASC A-FIB History Current/History of A-Fib/PAF?: No GME ATTESTATION GME ATTESTATION My faculty preceptor for this patient encounter was physically present during the encounter and was fully available. All aspects of the patient interview, examination, medical decision making process, and medical care plan development were reviewed and approved by the faculty preceptor. The faculty preceptor is aware and concurs with the plan as stated in the body of this note and will attest to such by his/her cosignature. AYDIN JALLOH DO Jan 17, 2020 12:56 ANNE BERGER MD January 24, 2020 18:59
[2020-01-17] MEDS: lisinopriL 20 MG TAB PO SCH (13:07)
[2020-01-17] MEDS: FINASTERIDE 5 MG TAB PO SCH (13:07)
[2020-01-17 14:00] VITALS: BP 138/80
[2020-01-17 14:45] VITALS: BP 138/80
[2020-01-17] MEDS ORDERED: CHLORTHALIDONE 25 MG TAB PO ONE (15:00)
[2020-01-17] MEDS: ENOXAPARIN 40MG/0.4ML SYRINGE (J1650 PER 10MG) SC SCH (16:45)
[2020-01-17] MEDS ORDERED: RAMELTEON 8 MG TAB (ROZEREM) PO SCH (21:00)
[2020-01-17 22:00] VITALS: BP 152/78
[2020-01-18 06:00] VITALS: BP 149/73
[2020-01-18 06:10] LABS: HEMATOCRIT 43.2 % (42.0-52.0); HEMOGLOBIN 14.8 g/dl (13.5-17.5); MEAN CORPUSCULAR HEMOGLOBIN 30.4 pg (27.0-33.0); MEAN CORPUSCULAR HGB CONC 34.3 g/dl (32.0-36.5); MEAN CORPUSCULAR VOLUME 88.7 fl (80.0-96.0); PLATELET COUNT, AUTOMATED 222 10^3/uL (150-450); RED BLOOD COUNT 4.87 10^6/uL (4.30-6.10); WHITE BLOOD COUNT 8.9 10^3/uL (4.0-10.0)
[2020-01-18 06:31] LABS: BLOOD UREA NITROGEN 14 MG/DL (7-18); CALCIUM LEVEL 8.9 MG/DL (8.8-10.2); CARBON DIOXIDE LEVEL 28 MEQ/L (21-32); CHLORIDE LEVEL 107 MEQ/L (98-107); CREATININE FOR GFR 0.86 MG/DL (0.70-1.30); GLOMERULAR FILTRATION RATE > 60.0 (>35); GLUCOSE, FASTING 105 MG/DL (70-100); POTASSIUM SERUM 3.9 MEQ/L (3.5-5.1); SODIUM LEVEL 140 MEQ/L (136-145)
[2020-01-18 08:55] VITALS: BP 145/74
[2020-01-18] MEDS: FINASTERIDE 5 MG TAB PO SCH (08:55)
[2020-01-18] MEDS: lisinopriL 20 MG TAB PO SCH (08:55)
[2020-01-18] MEDS: ENOXAPARIN 40MG/0.4ML SYRINGE (J1650 PER 10MG) SC SCH (08:56)
[2020-01-18] MEDS ORDERED: ATOR1TAB21 PO (09:17)
--- NOTE | 2020-01-18 12:21 | DS.PDOC ---
Discharge Summary General Date of Admission Jan 17, 2020 at 08:02 Date of Discharge 01/18/2020 Attending Physician: ANNE BERGER MD Discharge Summary PROCEDURES PERFORMED DURING STAY: None. ADMITTING/DISCHARGE DIAGNOSES: Atelectasis Hypertension Dyslipidemia COMPLICATIONS/CHIEF COMPLAINT: Shortness of breath HISTORY OF PRESENT ILLNESS/HOSPITAL COURSE: 89-year-old male presented to the emergency department with chief complaint of sudden onset shortness of breath nearly morning. He called EMS and was found to have temperature of 100.4 and came into the emergency department on nonrebreather. Workup in the emergency department revealed little except ABG with a PaO2 of 68 on room air, elevated d- dimer with negative CTA for PE, but chest x-ray and CTA showing possible atel ectasis and early pneumonia. Patient was monitored overnight and did not require any supplemental oxygen, had no fevers, and had no worsening of his symptoms. Pro-calcitonin came back negative the following morning. Findings were explained to the patient and he felt safe and stable for discharge home. 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 Patient was discharged home on atorvastatin as it is a better medication with fewer interactions than simvastatin. DISCHARGE MEDICATIONS: Please see below. ALLERGIES: Please see below. Vitals: (see below) General: No acute distress, laying comfortably in bed. HEENT: Normocephalic, atraumatic. EOMI. No scleral icterus. Moist mucous membranes. No pharyngeal erythema or uvular deviation. Neck: No JVD, lymphadenopathy, or thyromegaly. Cardiac: RRR, Normal S1 and S2, No murmurs, gallops, rubs. Pulm: Clear to auscultation b/l. Symmetric thorax. No wheezing, crackles, rhonchi Abd: Bowel Sounds present. Abdomen is soft, non-tender, non-distended. No guarding, rebound tenderness, or rigidity. Ext: No edema or cyanosis Skin: No skin changes Neuro: No focal neuro deficits Psych: Appropriate affect LABORATORY DATA: Please see below. IMAGIN01/17/2020 CTA chest: 1. There is no pulmonary embolus. 2. Patchy basilar opacities likely fibrotic and/or subsegmental atelectatic ch anges, however, early pneumonia cannot be rule out. 01/17/2020 CXR: Mild plate-like atelectasis left based. Otherwise no acute disease. PROGNOSIS: stable ACTIVITY: As tolerated. DIET: Low-sodium diet DISCHARGE PLAN: Home DISCHARGE INSTRUCTIONS: 1. Please return to hospital if symptoms worsen. DISCHARGE CONDITION: Stable. TIME SPENT ON DISCHARGE: 35 minutes Attending attestation: I evaluated and examined the patient in person; I discussed the care with Resident in detail and agree with the plan above. Vital Signs/I&Os Vital Signs Date Time Temp Pulse Resp B/P (MAP) Pulse Ox O2 Delivery O2 Flow Rate FiO2 01/18/20 08:55 145/74 01/18/20 06:00 98.7 72 20 97 Room Air 01/17/20 22:00 2.0 I&O- Last 24 Hours up to 6 AM 01/18/20 06:00 Intake Total 800 ml Output Total 0 ml Balance 800 ml Laboratory Data Labs 24H Laboratory Tests 2 01/18/20 05:32: Nucleated Red Blood Cells % (auto) 0.0, Anion Gap 5L, Glomerular Filtration Rate > 60.0, Calcium Level 8.9 CBC/BMP Laboratory Tests 01/18/20 05:32 Microbiology Microbiology 01/17/20 Blood Culture - Preliminary, Resulted No growth after 24 hours . All specim... 01/17/20 - Final, Complete 01/17/20 Blood Culture - Preliminary, Resulted No growth after 24 hours . All specim... Discharge Medications Scheduled Atorvastatin Calcium (Atorvastatin Calcium) 20 Mg Tablet, 20 MG PO DAILY Finasteride (Finasteride) 5 Mg Tab, 5 MG PO DAILY, (Reported) Lisinopril (Lisinopril) 20 Mg Tab, 20 MG PO DAILY, (Reported) Tamsulosin HCl (Flomax) 0.4 Mg Cap, 0.8 MG PO QHS, (Reported) Allergies Coded Allergies: Sulfa (Sulfonamide Antibiotics) (Verified Allergy, Unknown, UNKNOWN REACTION, 01/17/20) GME ATTESTATION GME ATTESTATION My faculty preceptor for this patient encounter was physically present during the encounter and was fully available. All aspects of the patient interview, examination, medical decision making process, and medical care plan development were reviewed and approved by the faculty preceptor. The faculty preceptor is aware and concurs with the plan as stated in the body of this note and will attest to such by his/her cosignature. GME ATTESTATION GME ATTESTATION My faculty preceptor for this patient encounter was physically present during the encounter and was fully available. All aspects of the patient interview, examination, medical decision making process, and medical care plan development were reviewed and approved by the faculty preceptor. The faculty preceptor is aware and concurs with the plan as stated in the body of this note and will attest to such by his/her cosignature. AYDIN JALLOH DO Jan 18, 2020 12:20 ANNE BERGER MD January 24, 2020 18:59
--- NOTE | 2020-01-18 16:34 | ECGEPIP ---
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
== END 2020-01-18 14:06 | disposition home or self-care (01) ==
LOC: M ED 08:01 → EDBD 08:01 → M ED INP 08:02 → ENRESERV 13:12 → M ED INP 13:32 → M MSPAV 14:45
PROVIDERS: ADMIT Internal Medicine; ATTEND Internal Medicine
DX: J98.11 Atelectasis (principal); I10 Essential (primary) hypertension; E78.5 Hyperlipidemia, unspecified; N40.0 Benign prostatic hyperplasia without lower urinary tract symptoms; R79.1 Abnormal coagulation profile; R60.0 Localized edema; R50.9 Fever, unspecified; R06.02 Shortness of breath; K21.9 Gastro-esophageal reflux disease without esophagitis; Z88.2 Allergy status to sulfonamides; Z79.899 Other long term (current) drug therapy
CPT/HCPCS: 36415; 36600; 71045; 71275; 80048; 80053; 82248; 82550; 82553; 82803; 83605; 83880; 84145; 84436; 84443; 84484; 85025; 85027; 85379; 85610; 86140; 87040; 87486; 87581; 87633; 87798; 93005; 93041; 96365; 96366; 96372; 97161; 97165; 99285; G0378; J0696; J1650; Q9967; U0002

== ENCOUNTER 2020-01-20 16:24 | Emergency (ER) | payer MEDICARE, OTHER ==
[~2020-01-20] VITALS: Ht 177.8 cm; Wt 98.4 kg
[~2020-01-20 16:24] MED LIST changes: +ATOR1TAB21 PO; +vitamin b12; +vitamin d
[2020-01-20 17:17] LABS: BASO % 0.4 % (0.0-1.0); EOS # 0.5 10^3/uL (0.0-0.5); EOS % 4.2 % (0.0-3.0); HEMATOCRIT 46.9 % (42.0-52.0); LYMPH # 2.9 10^3/uL (1.5-5.0); LYMPH % 26.4 % (24.0-44.0); MEAN CORPUSCULAR HGB CONC 34.1 g/dl (32.0-36.5); MEAN CORPUSCULAR VOLUME 90.9 fl (80.0-96.0); MONO # 0.9 10^3/uL (0.0-0.8); MONO % 7.7 % (0.0-5.0); NEUTROPHILS # 6.7 10^3/uL (1.5-8.5); NEUTROPHILS % 60.8 % (36.0-66.0); PLATELET COUNT, AUTOMATED 233 10^3/uL (150-450); RED BLOOD COUNT 5.16 10^6/uL (4.30-6.10)
--- NOTE | 2020-01-20 17:46 | REP ---
REASON: Chest pain. COMPARISON: Multiple, the latest 01/17/2020. The technique utilized in obtaining the radiograph has magnified the cardiac silhouette and accentuated the interstitial markings. The subsegmental atelectatic change seen in the left lung base has cleared. There is persistent unchanged elevation of the diaphragmatic surface of the right lung. The lung carlson are clear, and the heart is not enlarged, however, it is magnified by technique. No acute patchy parenchymal opacities or pleural effusions have developed. There is no change in the osseous structures. IMPRESSION: No acute cardiopulmonary disease. Electronically Signed by Flako William DO 01/23/2020 08:42 A
[2020-01-20 17:58] LABS: ALBUMIN 3.7 GM/DL (3.2-5.2); ALT/SGPT 35 U/L (12-78); BILIRUBIN,DIRECT 0.1 MG/DL (0.0-0.2); BILIRUBIN,TOTAL 0.6 MG/DL (0.2-1.0); BLOOD UREA NITROGEN 26 MG/DL (7-18); CALCIUM LEVEL 9.3 MG/DL (8.8-10.2); CARBON DIOXIDE LEVEL 29 MEQ/L (21-32); CHLORIDE LEVEL 104 MEQ/L (98-107); CK-MB VALUE MASS 2.1 NG/ML (<3.6); CPK CREATINE PHOSPHOKINASE 156 U/L (39-308); CREATININE FOR GFR 1.01 MG/DL (0.70-1.30); GLOMERULAR FILTRATION RATE > 60.0 (>35); GLUCOSE, FASTING 98 MG/DL (70-100); LIPASE 147 U/L (73-393); MB/CK RELATIVE INDEX 1.35 (< OR =4); POTASSIUM SERUM 3.7 MEQ/L (3.5-5.1); SODIUM LEVEL 140 MEQ/L (136-145); TOTAL PROTEIN 6.8 GM/DL (6.4-8.2); TROPONIN I < 0.02 NG/ML (< 0.10)
[2020-01-20 22:24] LABS: CK-MB VALUE MASS 2.7 NG/ML (<3.6); CPK CREATINE PHOSPHOKINASE 142 U/L (39-308); TROPONIN I < 0.02 NG/ML (< 0.10)
[2020-01-20 22:45] VITALS: BP 150/71
--- NOTE | 2020-01-20 22:55 | ECGEPIP ---
[facility] - ED Test Date: 2020-01-20 Pat Name: MAIKEL MURCIA Department: Room: - Gender: Male Gum Maker: : 1930 Requested By: Radha Garcia Order Number: [id number] Reading MD: Kael Gordon Measurements Intervals [place] Rate: 75 P: 45 [place]: 171 QRS: 3 QRSD: 133 T: 177 QT: 384 QTc: 431 Interpretive Statements SINUS RHYTHM WITH OCCASIONAL SUPRAVENTRICULAR PREMATURE COMPLEXES LEFT BUNDLE BRANCH BLOCK SIMILAR TO 01/17/20 Electronically Signed on 01-20-2020 22:55:08 EDT by Kael Gordon
== END 2020-01-20 23:13 | disposition home or self-care (01) ==
LOC: M ED 16:24
DX: R07.9 Chest pain, unspecified (principal); R53.83 Other fatigue; I10 Essential (primary) hypertension; E78.5 Hyperlipidemia, unspecified; I44.7 Left bundle-branch block, unspecified; I44.4 Left anterior fascicular block; Z85.46 Personal history of malignant neoplasm of prostate; Z88.2 Allergy status to sulfonamides; Z79.899 Other long term (current) drug therapy

== ENCOUNTER → 2020-03-15 | Outpatient (REF) | payer MEDICARE, OTHER ==
[~2020-03-15] MED LIST changes: +ALPR0.5T3 PO; +AMLO1TAB25 PO; -ASPI81TA85 PO; +ASPI81TA86 PO; +D31000TA2 PO; +DILT240C82 PO; +MONT10TA4 PO; +SING4CHW9 PO
== END ==
LOC: M LAB REF 17:16
PROVIDERS: ATTEND Dermatology
DX: C44.41 Basal cell carcinoma of skin of scalp and neck (principal)
CPT/HCPCS: 11102; 88305; G0463

== ENCOUNTER 2020-03-25 19:01 | Emergency (ER) | payer MEDICARE, OTHER ==
[~2020-03-25] VITALS: Ht 177.8 cm; Wt 90.9 kg
[~2020-03-25 19:01] MED LIST changes: -ALPR0.5T3 PO; -AMLO1TAB25 PO; +ASPI81TA85 PO; -ASPI81TA86 PO; -D31000TA2 PO; -DILT240C82 PO; -MONT10TA4 PO; -SING4CHW9 PO
[2020-03-25 19:13] VITALS: BP 160/84
[2020-03-25] MEDS ORDERED: DILT240C82 PO (19:20)
--- NOTE | 2020-03-25 20:07 | REP ---
Clinical: Trauma. Technique: AP and lateral views of the left wrist. Findings: Soft tissue swelling is suggested. No obvious acute fracture or dislocation is appreciated. Generalized age-related arthritic changes and vascular calcifications noted. Small soft tissue calcifications are identified and likely chronic. Impression: Soft-tissue swelling. No obvious acute fracture. If the patient remains symptomatic consider complete wrist reevaluation in 3-5 days including scaphoid view. Electronically Signed by Stas Tanner MD 03/25/2020 07:58 P
--- NOTE | 2020-03-25 20:09 | REP ---
Clinical: Trauma. Technique: AP and lateral views of the left hand. Findings: Age-related arthritic changes are appreciated. No obvious acute fracture dislocation. Swelling at the wrist is suggested and scaphoid fracture cannot be excluded. Clinical correlation is required. Impression: 1. Limited by arthritic changes. 2. Soft tissue swelling at the wrist and carpal bone injury cannot be excluded. Complete carpal bone series should be considered including scaphoid view if necessary. Electronically Signed by Stas Tanner MD 03/25/2020 08:00 P
[2020-04-06] MEDS ORDERED: VITAD1000T PO (10:47)
[2020-04-07] MEDS ORDERED: AMLO10TA5 PO (12:31)
== END 2020-03-25 19:58 | disposition home or self-care (01) ==
LOC: EDBD 19:01 → M ED 19:01
DX: S60.222A Contusion of left hand, initial encounter (principal); W01.0XXA Fall on same level from slipping, tripping and stumbling without subsequent striking against object, initial encounter; Y92.9 Unspecified place or not applicable; Y93.9 Activity, unspecified; Y99.9 Unspecified external cause status; I10 Essential (primary) hypertension; C61 Malignant neoplasm of prostate; Z79.899 Other long term (current) drug therapy; Z88.2 Allergy status to sulfonamides

== ENCOUNTER 2020-04-06 09:21 | Inpatient (IN) | payer MEDICARE, OTHER ==
[~2020-04-06] VITALS: Ht 175.3 cm; Wt 95.1 kg
[~2020-04-06 09:21] MED LIST changes: -ASPI81TA85 PO; +ASPI81TA86 PO; +DILT240C82 PO
[2020-04-06] MEDS ORDERED: SING4CHW9 PO (09:35)
[2020-04-06] MEDS ORDERED: ALPR0.5T3 PO (09:35)
[2020-04-06] MEDS ORDERED: PROAAER10 INH (09:35)
[2020-04-06] MEDS ORDERED: LABETALOL 100MG/20ML VIAL IV STA (10:05)
[2020-04-06 10:08] LABS: BASO % 0.3 % (0.0-1.0); EOS # 0.3 10^3/uL (0.0-0.5); EOS % 2.9 % (0.0-3.0); HEMATOCRIT 43.6 % (42.0-52.0); HEMOGLOBIN 14.5 g/dl (13.5-17.5); LYMPH # 1.3 10^3/uL (1.5-5.0); LYMPH % 14.4 % (24.0-44.0); MEAN CORPUSCULAR HGB CONC 33.3 g/dl (32.0-36.5); MEAN CORPUSCULAR VOLUME 90.1 fl (80.0-96.0); MONO # 0.7 10^3/uL (0.0-0.8); MONO % 8.2 % (0.0-5.0); NEUTROPHILS # 6.5 10^3/uL (1.5-8.5); NEUTROPHILS % 73.6 % (36.0-66.0); PLATELET COUNT, AUTOMATED 216 10^3/uL (150-450); RED BLOOD COUNT 4.84 10^6/uL (4.30-6.10); WHITE BLOOD COUNT 8.9 10^3/uL (4.0-10.0)
[2020-04-06] MEDS ORDERED: MONT10TA4 PO (10:11)
[2020-04-06] MEDS ORDERED: SIMV10TA21 PO (10:11)
[2020-04-06 10:43] LABS: BLOOD UREA NITROGEN 16 MG/DL (7-18); CARBON DIOXIDE LEVEL 29 MEQ/L (21-32); CHLORIDE LEVEL 106 MEQ/L (98-107); CREATININE FOR GFR 0.88 MG/DL (0.70-1.30); GLOMERULAR FILTRATION RATE > 60.0 (>35); GLUCOSE, FASTING 105 MG/DL (70-100); MAGNESIUM LEVEL 2.1 MG/DL (1.8-2.4); POTASSIUM SERUM 4.4 MEQ/L (3.5-5.1); SODIUM LEVEL 144 MEQ/L (136-145)
[2020-04-06] MEDS ORDERED: FLOM0.4C39 PO (10:46)
[2020-04-06] MEDS ORDERED: D31000TA2 PO (10:47)
[2020-04-06] MEDS ORDERED: ALBUTEROL 90 MCG/ACT 8GM HFA INHALER INH PRN (11:15)
[2020-04-06] MEDS ORDERED: ALPRAZolam 0.5 MG TAB PO PRN (11:15)
[2020-04-06] MEDS ORDERED: hydrALAZINE 20MG/ML 1ML VIAL (J0360 PER 20MG) IV ONE (11:15)
[2020-04-06] MEDS ORDERED: amLODIPine 10 MG TAB PO ONE (11:15)
--- NOTE | 2020-04-06 11:21 | REP ---
REASON: Altered mental status. COMPARISON: 12/13/2018. Since the last examination, A tiny lacunar infarct has developed in the right basal ganglion. This is old. The ventricles and sulci are unchanged. The deep cerebral white matter is otherwise unchanged. There are no extra-axial fluid collections and there is no shift in the midline structures. Cerebral and cerebellar atrophic changes are noted status quo. There is no acute intracranial hemorrhage. There is no change in the paranasal sinuses. Ethmoid bulla mucosal thickening is noted status quo. IMPRESSION: Old right basal ganglia lacunar infarct, otherwise, no significant change from the prior exam as described above. Electronically Signed by Flako William DO 04/06/2020 11:27 A
[2020-04-06 13:20] VITALS: BP 190/88
[2020-04-06] MEDS ORDERED: lisinopriL 20 MG TAB PO ONE (14:15)
[2020-04-06 14:40] VITALS: BP 120/60
[2020-04-06 16:00] VITALS: BP 118/58
[2020-04-06] MEDS ORDERED: hydrALAZINE 20MG/ML 1ML VIAL (J0360 PER 20MG) IV SCH (16:00)
[2020-04-06] MEDS ORDERED: hydrALAZINE 20MG/ML 1ML VIAL (J0360 PER 20MG) IV PRN (16:00)
--- NOTE | 2020-04-06 16:53 | HPE ---
DATE OF ADMISSION: 04/06/2020 CHIEF COMPLAINT: Near syncope. HISTORY OF THE PRESENT ILLNESS: 89-year-old male with a history of prostate cancer, hypertension, hypercholesterolemia, obstructive sleep apnea, presented to the emergency room, brought in by ambulance after the patient had a near syncopal episode at the can intake worker's office. The patient was known to have a left neck basal cell carcinoma and presented today for resection after receiving lidocaine. Patient asked, "Am I going to go out?" Dr. Silva said, "You're not going to pass out." He was noted to be hypertensive and was brought into the emergency room for further evaluation. According to the son, who provides most of the history, patient has been falling about once or twice per month at home. He has been having increasing shortness of breath when he ambulates. Workup included cardiology workup for ischemia, which was negative, as well as pulmonary function testing at [facility], which was also negative. Family says that he has had no fever, no chills, no chest pain, pressure or tightness. They say that he has dementia and only remembers 1-3 minutes of his conversation and does not recall any other history. He lives with his at home and has been managing okay so far. Patient denied any palpitations, lightheadedness, or dizziness. No chest pain, pressure or tightness. He has chronic shortness of breath that has been previously evaluated. CT of the head in the emergency room was negative for any hemorrhagic bleed. His presenting blood pressure was 218/97 and worsened to 236/106. He was given a dose of intravenous (IV) labetalol 20 mg, IV hydralazine 20 mg, given Norvasc 10 mg and kept on his home medication of lisinopril. Patient's clinic visit notes blood pressures that are normal 118/68. Hospitalist was called to admit for hypertensive urgency, as well as near syncope evaluation. PAST MEDICAL HISTORY: Old right basal ganglia lacunar infarct. Hypertension. Obstructive sleep apnea. Obesity, body mass index (BMI) of 31. Left neck basal cell carcinoma. Seasonal allergies. History of hepatitis C, diagnosed 40 years ago. Prostate cancer. PAST SURGICAL HISTORY: Abdominal hernia repair times two. Cholecystectomy. ALLERGIES: Allergic rhinitis. FAMILY HISTORY: Father had heart problems, unknown type. SOCIAL HISTORY: 40 pack-year history of smoking, has not smoked in decades. Social alcohol use. 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 No drug use or travel history. HOME MEDICATIONS: - albuterol two puffs every 4 hours as needed - alprazolam 0.25 mg twice a day for anxiety - vitamin D 1000 units daily - lisinopril 20 mg daily - montelukast 10 mg daily - simvastatin 10 mg daily - Flomax 0.8 mg nightly REVIEW OF SYSTEMS: Provided by the patient's son. Patient has chronic dementia, difficult to provide a history. PHYSICAL EXAMINATION: Temperature 97.2, pulse 83, respiratory rate 20, presenting blood pressure on admission was 238/106, repeat was 226/102, current blood pressure is 120/60. Pulse 83, sinus. Respiratory rate 22. 97% on room air. Generally, patient is awake, alert, oriented to himself only and place, able to state [employer] [facility] [place]. He is eating a tuna fish sandwich at the bedside. No jugular venous distention (JVD), no thyromegaly. No cervical lymphadenopathy. Face is symmetric. Tongue is midline. Patient has no jaundice, icterus or pallor. Lungs are diminished but clear to auscultation. No wheezing or rales. Heart: S1, S2, sinus rhythm. Abdomen is soft, nontender, nondistended. Positive bowel sounds times four quadrants. Extremities: Trace edema bilaterally. White count 8.9, hemoglobin 14, hematocrit 43, platelet count 216. Sodium 144, potassium 4.4, chloride 106, bicarbonate 29, BUN 16, creatinine 0.88, glucose of 105. Blood culture PENDING CT of the head: Old right basal ganglia lacunar infarct. No significant change from prior examination. EKG: Sinus rhythm, chronic left bundle branch block, rate of 75. ASSESSMENT AND PLAN: 89-year-old male was at the can intake worker's office for a left neck basal cell carcinoma resection, had a near syncopal episode after lidocaine was given, found to be hypertensive, brought into the emergency room for hypertensive urgency, presenting blood pressure of greater than 220. IMPRESSION: 1. Near syncope, most likely vasovagal secondary to pain from the neck injection with lidocaine. Patient is currently on telemetry unit, being treated for hypertensive urgency. 2. Hypertensive urgency. Patient received IV labetalol, IV hydralazine, currently on Norvasc and lisinopril. Nothing by mouth after midnight for renal ultrasound with Doppler to rule out renal artery stenosis in the morning. Continue with the same for now. 3. Prostate cancer. No metastatic lesions found on CT of the head. Patient had a bone scan, negative skeletal mets. Urology outpatient followup. 4. Hypercholesterolemia. Check lipid panel in the morning. 5. Shortness of breath with prior history of 40 pack-year history of smoking. Obtain records from [facility] regarding prior pulmonary function tests (PFTs). Check an echocardiogram to rule out pulmonary hypertension or valvular disease as cause for patient's dyspnea on exertion. Patient apparently had a coronary evaluation for heart disease, which was negative. Obtain records from cardiology as well. 6. Obesity with obstructive sleep apnea. May resume home continuous positive airway pressure (CPAP). 7. Hypercholesterolemia. Check lipid panel in the morning. 8. Left neck basal cell carcinoma. Outpatient followup for resection. 9. Seasonal allergies, stable. 10. History of hepatitis C over 40 years ago. Outpatient followup with primary care. 11. Deep vein thrombosis (DVT) prophylaxis with compression stockings. [facility]
[2020-04-06 20:00] VITALS: BP 112/52
[2020-04-06] MEDS ORDERED: TAMSULOSIN 0.4 MG CAP PO SCH (21:00)
[2020-04-07] VITALS: BP 102/58
[2020-04-07 04:00] VITALS: BP 112/56
[2020-04-07] MEDS ORDERED: SIMVASTATIN 10 MG TAB PO SCH (09:00)
[2020-04-07] MEDS ORDERED: VITAMIN D 1,000 INTERNATIONAL UNITS TABLET PO SCH (09:00)
[2020-04-07] MEDS ORDERED: lisinopriL 20 MG TAB PO SCH ×2 (09:00)
[2020-04-07] MEDS ORDERED: MONTELUKAST 10 MG TAB PO SCH (09:00)
--- NOTE | 2020-04-07 09:23 | ECGEPIP ---
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
--- NOTE | 2020-04-07 10:37 | REPVR ---
PROCEDURE INFORMATION: Exam: US Retroperitoneal Limited, Kidneys Exam date and time: 04/07/2020 9:47 AM Age: 89 years old Clinical indication: Other: HTN; Additional info: Hypertensive urgency R/O renal artery stenosis TECHNIQUE: Imaging protocol: Real-time ultrasound of the retroperitoneum with image documentation. Examination was focused on the kidneys. COMPARISON: No relevant prior studies available. FINDINGS: Right kidney: The right kidney is normal in size and echogenicity, measuring 11.2 x 4.3 x 5.7 cm. No hydronephrosis. No echogenic shadowing foci to suggest renal calculi. Left kidney: Left kidney is normal in size and echogenicity, measuring 12.1 x 4.0 x 5.2 cm. No hydronephrosis. No echogenic shadowing foci to suggest renal calculi. Prostate: The prostate is enlarged, measuring 5.2 x 5.8 x 6.2 cm, with volume of 98 cc. Bladder: The bladder is grossly unremarkable. IMPRESSION: 1. Unremarkable kidneys bilaterally. 2. Enlarged prostate. Electronically signed by: Carmela Treviño On 04/07/2020 10:36:45 AM
[2020-04-07 12:00] VITALS: BP 133/75
[2020-04-07] MEDS ORDERED: AMLO1TAB25 PO (12:31)
[2020-04-07] MEDS ORDERED: amLODIPine 10 MG TAB PO ONE (13:00)
[2020-04-07] MEDS ORDERED: cloNIDine 0.1 MG TAB PO ONE (13:00)
[2020-04-07 13:04] VITALS: BP 175/75
[2020-04-08] MEDS ORDERED: amLODIPine 10 MG TAB PO SCH (09:00)
--- NOTE | 2020-04-08 13:21 | ECHO ---
DATE OF STUDY: 04/07/2020 DATE OF : 1930 AGE: 89 REFERRING PROVIDER: Dr. Izabel Bhatia REASON FOR THE STUDY: Syncope. PATIENT LOCATION: Room 3224 2-D MEASUREMENTS: IVS: 1.2 cm LV: 4.4 cm LVPW: 1.2 cm LA: 3.9 cm Aorta: 3.2 cm IVC: 1.4 cm DOPPLER MEASUREMENTS: Peak velocity across the aortic valve: 2.5 m/s Peak velocity across the LVOT: 1.1 m/s Peak gradient across the aortic valve: 25 mmHg Mean gradient across the aortic valve: 17 mmHg Mitral E: 0.6 Mitral A: 1.3 Ratio: 0.5 Maximum tricuspid valve velocity: 2.7 m/s 2-D COMMENTS: 1. Normal left ventricular size, wall thickness, and normal global left ventricular systolic function. The estimated left ventricular systolic ejection fraction is 60-65%. 2. Normal left atrium. Normal right atrium and right ventricle. 3. The atrial septum appeared to be normal without evidence of defect or shunt. 4. Normal aortic root. 5. Trace pericardial effusion noted, no evidence of cardiac tamponade. 6. Mildly calcified aortic valve with mildly restricted leaflet motion. Mildly calcified mitral annulus with normal anterior mitral valve leaflet motion. Normal tricuspid valve and pulmonic valve. The proximal pulmonary artery branches were not well visualized. 7. The inferior vena cava was normal in size, central venous pressure is most likely normal. DOPPLER: It detects mild aortic regurgitation, trace mitral regurgitation, and mild tricuspid regurgitation. The calculated pulmonary artery systolic pressure varies between 30-40 mmHg. Abnormal relaxation pattern was noted across the mitral valve leaflets as well as the mitral valve annulus consistent with features of grade 1 left ventricular diastolic dysfunction. IMPRESSION: 1. Normal global left ventricular systolic function. There are some features of grade 1 left ventricular diastolic dysfunction manifested by abnormal relaxation. 2. Aortic valve sclerosis with mild aortic regurgitation and mild aortic stenosis. 3. Mitral annulus calcification with trace mitral regurgitation. 4. Mild tricuspid regurgitation with mild pulmonary hypertension. 5. Trace pericardial effusion. MTDD
== END 2020-04-07 14:44 | disposition home or self-care (01) | DRG 305 ==
LOC: M ED 09:21 → M ED INP 11:01 → M PCU 13:33 → ENRESERV 15:12
PROVIDERS: ADMIT General Practice; ATTEND General Practice
DX: I16.0 Hypertensive urgency (principal); E66.2 Morbid (severe) obesity with alveolar hypoventilation; E78.00 Pure hypercholesterolemia, unspecified; C61 Malignant neoplasm of prostate; Z79.899 Other long term (current) drug therapy; Z87.891 Personal history of nicotine dependence; I10 Essential (primary) hypertension; Z68.31 Body mass index [BMI] 31.0-31.9, adult; R55 Syncope and collapse; C44.41 Basal cell carcinoma of skin of scalp and neck; B18.2 Chronic viral hepatitis C

== ENCOUNTER → 2020-04-25 | Outpatient (REF) | payer MEDICARE, OTHER ==
[~2020-04-25] MED LIST changes: +ALPR0.5T3 PO; +AMLO1TAB25 PO; +D31000TA2 PO; +MONT10TA4 PO; +SING4CHW9 PO
[2020-06-04 06:35] LABS: VITAMIN B1 LEVEL WHOLE BLOOD See Separate Report; VITAMIN E(ALPHA TOCOPHEROL) See Separate Report; VITAMIN E(GAMMA TOCOPHEROL) See Separate Report
[2020-06-04 06:36] LABS: VITAMIN B6,PYRIDOXAL PHOSPHATE See Separate Report
[2020-06-09 18:26] LABS: CHOLESTEROL RISK RATIO 3.24 (<5); FOLATE 21.2 NG/ML
== END ==
LOC: M LABDRWAD 13:24
PROVIDERS: ATTEND Psychiatry & Neurology Neurology
DX: E53.8 Deficiency of other specified B group vitamins (principal); E51.9 Thiamine deficiency, unspecified; E11.9 Type 2 diabetes mellitus without complications; E78.5 Hyperlipidemia, unspecified; Z86.73 Personal history of transient ischemic attack (TIA), and cerebral infarction without residual deficits

== ENCOUNTER 2020-04-30 02:30 | Emergency (ER) | payer MEDICARE, OTHER ==
[2020-05-01] MEDS ORDERED: ISOVUE-370 76% 100ML VIAL ONE
[2020-05-01] MEDS ORDERED: MAGNESIUM CITRATE 300 ML BTL ONE (02:16)
--- NOTE | 2020-06-05 10:05 | ECGEPIP ---
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
[2020-06-15 22:08] LABS: INR 1.04; PARTIAL THROMBOPLASTIN TIME 30.9 SECONDS (24.2-38.5); PROTHROMBIN TIME 13.8 SECONDS (12.5-14.3)
[2020-06-15 22:12] LABS: BASO % 0.2 % (0.0-1.0); EOS # 0.3 10^3/uL (0.0-0.5); EOS % 2.7 % (0.0-3.0); HEMATOCRIT 42.4 % (42.0-52.0); HEMOGLOBIN 14.3 g/dl (13.5-17.5); LYMPH # 1.7 10^3/uL (1.5-5.0); LYMPH % 14.1 % (24.0-44.0); MEAN CORPUSCULAR HEMOGLOBIN 30.3 pg (27.0-33.0); MEAN CORPUSCULAR HGB CONC 33.7 g/dl (32.0-36.5); MEAN CORPUSCULAR VOLUME 89.8 fl (80.0-96.0); MONO # 0.8 10^3/uL (0.0-0.8); MONO % 6.7 % (0.0-5.0); NEUTROPHILS # 9.2 10^3/uL (1.5-8.5); NEUTROPHILS % 75.8 % (36.0-66.0); PLATELET COUNT, AUTOMATED 242 10^3/uL (150-450); RED BLOOD COUNT 4.72 10^6/uL (4.30-6.10); WHITE BLOOD COUNT 12.1 10^3/uL (4.0-10.0)
[2020-07-14 22:44] LABS: ALBUMIN 3.4 GM/DL (3.2-5.2); ALT/SGPT 29 U/L (12-78); BILIRUBIN,DIRECT < 0.1 MG/DL (0.0-0.2); BILIRUBIN,TOTAL 0.3 MG/DL (0.2-1.0); BLOOD UREA NITROGEN 25 MG/DL (7-18); CALCIUM LEVEL 8.9 MG/DL (8.8-10.2); CARBON DIOXIDE LEVEL 28 MEQ/L (21-32); CHLORIDE LEVEL 108 MEQ/L (98-107); CK-MB VALUE MASS < 1.0 NG/ML (<3.6); CPK CREATINE PHOSPHOKINASE 71 U/L (39-308); CREATININE FOR GFR 0.89 MG/DL (0.70-1.30); ETHYL ALCOHOL (ETHANOL) < 0.003 % (0.000-0.010); GLOMERULAR FILTRATION RATE > 60.0 (>35); GLUCOSE, FASTING 120 MG/DL (70-100); MB/CK RELATIVE INDEX 1.41 (< OR =4); POTASSIUM SERUM 3.8 MEQ/L (3.5-5.1); SODIUM LEVEL 142 MEQ/L (136-145); TOTAL PROTEIN 6.4 GM/DL (6.4-8.2); TROPONIN I < 0.02 NG/ML (< 0.10)
== END 2020-05-01 02:15 | disposition home or self-care (01) ==
LOC: M ED 02:30
DX: K59.00 Constipation, unspecified (principal); R93.5 Abnormal findings on diagnostic imaging of other abdominal regions, including retroperitoneum; N28.89 Other specified disorders of kidney and ureter; N40.1 Benign prostatic hyperplasia with lower urinary tract symptoms; K57.30 Diverticulosis of large intestine without perforation or abscess without bleeding; I10 Essential (primary) hypertension; E78.5 Hyperlipidemia, unspecified; C61 Malignant neoplasm of prostate; C44.91 Basal cell carcinoma of skin, unspecified; Z86.73 Personal history of transient ischemic attack (TIA), and cerebral infarction without residual deficits; Z88.2 Allergy status to sulfonamides; Z79.899 Other long term (current) drug therapy
CPT/HCPCS: 36415; 70450; 80048; 80076; 82140; 82550; 82553; 84484; 85025; 85610; 85730; 93005; 99284; G0480; Q9967

== ENCOUNTER → 2020-06-19 | Outpatient (REF) | payer MEDICARE, OTHER | LOC: M LAB REF 18:28 | PROVIDERS: ATTEND Dermatology | DX: C44.41 Basal cell carcinoma of skin of scalp and neck (principal) ==

== ENCOUNTER → 2020-08-21 | Outpatient (CLI) | payer MEDICARE, OTHER ==
[~2020-08-21] MED LIST changes: -MONT10TA4 PO; +MONT5TAB2 PO
[2020-08-22 16:09] LABS: TESTOSTERONE FREE (DIRECT) 8.5 pg/mL (6.6-18.1)
== END ==
LOC: M PLALAB 11:21
PROVIDERS: ATTEND Urology
DX: C61 Malignant neoplasm of prostate (principal)
CPT/HCPCS: 36415; 84402; 84403; G0103; G0463

== ENCOUNTER → 2020-09-25 | Outpatient (REF) | payer MEDICARE, OTHER ==
[2020-09-27 23:06] LABS: PSA TOTAL 18.6 ng/mL (0.0-4.0)
== END ==
LOC: M PLALAB 12:31
PROVIDERS: ATTEND Urology
DX: C61 Malignant neoplasm of prostate (principal); R97.20 Elevated prostate specific antigen [PSA]

== ENCOUNTER → 2020-11-01 | Outpatient (REF) | payer MEDICARE, OTHER ==
[~2020-11-01] MED LIST changes: -LISI-538 PO; +LISI20TA33 PO; +MONT10TA10 PO; -MONT5TAB2 PO
[2020-11-01 13:15] LABS: BASO # 0.1 10^3/uL (0.0-0.2); BASO % 0.6 % (0.0-1.0); EOS # 0.5 10^3/uL (0.0-0.5); EOS % 4.7 % (0.0-3.0); HEMATOCRIT 45.1 % (42.0-52.0); LYMPH # 2.6 10^3/uL (1.5-5.0); LYMPH % 26.6 % (24.0-44.0); MEAN CORPUSCULAR HEMOGLOBIN 29.4 pg (27.0-33.0); MEAN CORPUSCULAR HGB CONC 33.3 g/dl (32.0-36.5); MEAN CORPUSCULAR VOLUME 88.3 fl (80.0-96.0); MONO # 0.8 10^3/uL (0.0-0.8); MONO % 7.9 % (0.0-5.0); NEUTROPHILS # 5.8 10^3/uL (1.5-8.5); NEUTROPHILS % 59.6 % (36.0-66.0); PLATELET COUNT, AUTOMATED 249 10^3/uL (150-450); RED BLOOD COUNT 5.11 10^6/uL (4.30-6.10); WHITE BLOOD COUNT 9.8 10^3/uL (4.0-10.0)
[2020-11-01 13:48] LABS: ALBUMIN 3.8 GM/DL (3.2-5.2); ALT/SGPT 19 U/L (12-78); BILIRUBIN,TOTAL 0.4 MG/DL (0.2-1.0); BLOOD UREA NITROGEN 17 MG/DL (7-18); CALCIUM LEVEL 9.6 MG/DL (8.8-10.2); CARBON DIOXIDE LEVEL 31 MEQ/L (21-32); CHLORIDE LEVEL 103 MEQ/L (98-107); CHOLESTEROL LEVEL 166 MG/DL (<200); CHOLESTEROL RISK RATIO 3.608 (<5); CREATININE FOR GFR 0.96 MG/DL (0.70-1.30); GLOMERULAR FILTRATION RATE > 60.0 (>35); GLUCOSE, FASTING 105 MG/DL (70-100); HDL CHOLESTEROL 46 MG/DL (>40); LDL CHOLESTEROL 72 MG/DL (<100); NON-HDL-C 120 MG/DL; SODIUM LEVEL 140 MEQ/L (136-145); TOTAL PROTEIN 6.9 GM/DL (6.4-8.2); TRIGLYCERIDES LEVEL 238 MG/DL (<150)
[2020-11-01 13:52] LABS: TOTAL 25(OH) VITAMIN D 32.2 NG/ML (30.0-100.0)
== END ==
LOC: M LABDRWAD 12:06
PROVIDERS: ATTEND Nurse Practitioner Family
DX: D64.9 Anemia, unspecified (principal); E55.9 Vitamin D deficiency, unspecified; E78.5 Hyperlipidemia, unspecified; I10 Essential (primary) hypertension; Z79.899 Other long term (current) drug therapy

== ENCOUNTER → 2020-12-05 | Outpatient (REF) | payer MEDICARE, OTHER | LOC: M SFHCADAM 14:18 | PROVIDERS: ATTEND Urology | DX: C61 Malignant neoplasm of prostate (principal); Z12.5 Encounter for screening for malignant neoplasm of prostate ==

== ENCOUNTER → 2021-03-15 | Outpatient (REF) | payer MEDICARE, OTHER ==
[~2021-03-15] MED LIST changes: -DOXY100C37; +DOXY1CAP62
== END ==
LOC: M SFHCADAM 11:37
PROVIDERS: ATTEND Urology
DX: C61 Malignant neoplasm of prostate (principal)